=== PATIENT | male | born 1970 | race Caucasian/White ===

== ENCOUNTER → 2017-06-01 | Outpatient (CLI) | payer OTHER ==
[~2017-06-01] MED LIST: OMEP40CA6 PO
== END ==
LOC: RAD 08:38
PROVIDERS: ATTEND Nurse Practitioner Primary Care
DX: K80.20 Calculus of gallbladder without cholecystitis without obstruction (principal)
CPT/HCPCS: 76700

== ENCOUNTER 2017-06-02 11:05 | Inpatient (IN) | payer OTHER ==
[~2017-06-02] VITALS: Ht 182.9 cm; Wt 93.7 kg
[2017-06-02] MEDS ORDERED: CEFAZOLIN PMX 2GM/50ML 50 ML IV SCH (12:00)
[2017-06-02] MEDS ORDERED: ONDANSETRON 2MG/ML, 2ML IVPush PRN (12:00)
[2017-06-02] MEDS: PLEASE ENTER HEIGHT AND WEIGHT MC SCH ×2 (12:30→20:30)
[2017-06-02] MEDS ORDERED: PLEASE ENTER ALLERGIES MC SCH (12:30)
[2017-06-02] MEDS ORDERED: CEFTRIAXONE 2 GM in DEXTROSE 5% 100 ML IVPB SCH (12:30)
[2017-06-02 12:36] LABS: BASOPHILS # (AUTO) 0.02 x10^3/uL (0-0.1); BASOPHILS % (AUTO) 0 % (0-1); EOSINOPHILS # (AUTO) 0.18 x10^3/uL (0-0.4); EOSINOPHILS % (AUTO) 2 % (1-7); LYMPHOCYTES # (AUTO) 2.42 x10^3/uL (1-3.4); LYMPHOCYTES % (AUTO) 29 % (22-44); MD NO; MEAN CORPUSCULAR HEMOGLOBIN 23.7 pg (27.5-34.5); MEAN CORPUSCULAR HGB CONC 32.5 g/dL (33.2-36.2); MEAN CORPUSCULAR VOLUME 73.1 fL (81-97); MEAN PLATELET VOLUME 8.9 fL (7.4-10.4); MONOCYTES # (AUTO) 0.75 x10^3/uL (0.2-0.8); MONOCYTES % (AUTO) 9 % (2-9); NEUTROPHILS % (AUTO) 60 % (42-75); PLATELET COUNT 227 x10^3/uL (130-400); RED BLOOD COUNT 5.68 x10^6/uL (4.38-5.82); RED CELL DISTRIBUTION WIDTH 15.9 % (9.4-14.8)
[2017-06-02 12:40] LABS: ANION GAP 9 mmol/L (5-15); CHLORIDE 106 mmol/L (98-107); CREATININE 0.94 mg/dL (0.7-1.3)
[2017-06-02] MEDS: morphine SULFATE 10 MG/ML, 1ML IVPush PRN ×3 (12:50→20:20)
[2017-06-02] MEDS: SODIUM CHLORIDE 0.9% 1,000 ML IV SCH ×2 (12:52→20:10)
[2017-06-02] MEDS: CEFAZOLIN 2,000 MG in DEXTROSE 5% 100 ML IVPB SCH (14:01)
[2017-06-02 14:16] VITALS: BP 131/83
[2017-06-02 14:19] VITALS: BP 131/83
[2017-06-02] MEDS ORDERED: BUPIVACAINE/PF 0.5% ONE (14:37)
[2017-06-02] MEDS ORDERED: EPINEPHRINE 1 MG/ML, 1ML ONE (14:37)
[2017-06-02] MEDS ORDERED: LIDOCAINE GEL 2%, 5ML ONE (16:29)
[2017-06-02] MEDS ORDERED: DEXAMETHASONE 4 MG/ML, 5ML ONE (16:33)
[2017-06-02] MEDS ORDERED: ROCURONIUM 10 MG/ML,10ML ONE (16:33)
[2017-06-02] MEDS ORDERED: KETOROLAC 30 MG/1 ML ONE (16:33)
[2017-06-02] MEDS ORDERED: FENTANYL PF 100 MCG/2ML ONE ×2 (16:34→17:41)
[2017-06-02] MEDS ORDERED: MIDAZOLAM 1 MG/ML, 2ML ONE (16:34)
[2017-06-02] MEDS ORDERED: NEOSTIGMINE 1 MG/ML, 10ML ONE (16:47)
[2017-06-02] MEDS ORDERED: CEFOTETAN PMX 2GM/50ML 50 ML ONE (16:47)
[2017-06-02] MEDS ORDERED: PROPOFOL 10 MG/ML, 20ML ONE (16:47)
[2017-06-02] MEDS ORDERED: SUCCINYLCHOLINE 20 MG/ML, 10ML ONE (16:47)
[2017-06-02] MEDS ORDERED: CEFAZOLIN 1,000 MG ONE (16:47)
[2017-06-02] MEDS ORDERED: GLYCOPYRROLATE 0.2MG/1ML, 5ML ONE (16:47)
[2017-06-02] MEDS ORDERED: ONDANSETRON 2MG/ML, 2ML ONE (16:47)
[2017-06-02] MEDS ORDERED: DEXAMETHASONE 4 MG/ML, 1ML ONE (16:47)
[2017-06-02] MEDS ORDERED: ONDANSETRON ODT 8 MG ONE ×2 (16:48)
[2017-06-02] MEDS: FENTANYL PF 100 MCG/2ML IV PRN ×3 (17:45→17:55)
[2017-06-02] MEDS ORDERED: ACETAMINOPHEN 650 MG/20.3 ML UDC ONE (17:58)
[2017-06-02] MEDS ORDERED: OXYcodone 5 MG/5 ML ORAL.SOL UDC ONE (17:58)
[2017-06-02] MEDS ORDERED: OXYcodone 5 MG/5 ML ORAL.SOL UDC PO PRN (18:00)
[2017-06-02] MEDS ORDERED: PROMETHAZINE 25 MG/ML, 1ML IV PRN (18:00)
[2017-06-02] MEDS ORDERED: morphine SULFATE 10 MG/ML, 1ML IV PRN (18:00)
[2017-06-02] MEDS ORDERED: HYDROmorphone 1 MG/ML, 1ML IV PRN (18:00)
[2017-06-02] MEDS ORDERED: MEPERIDINE/PF 25MG/0.5ML IVPush PRN (18:00)
[2017-06-02] MEDS ORDERED: METOCLOPRAMIDE 5 MG/ML, 2ML IV PRN (18:00)
[2017-06-02] MEDS ORDERED: HYDROcodone/APAP 7.5-325MG/15ML UDC PO PRN (18:00)
[2017-06-02] MEDS ORDERED: ACETAMINOPHEN 325 MG TABLET PO PRN (18:30)
[2017-06-02] MEDS ORDERED: OMEP40CA6 PO (18:45)
[2017-06-02 18:47] VITALS: BP 116/58
[2017-06-02] MEDS ORDERED: MORPHINE SULFATE 4 MG/ML, 1ML ONE (20:16)
[2017-06-03] MEDS ORDERED: MORPHINE SULFATE 4 MG/ML, 1ML ONE ×2 (00:39→05:31)
[2017-06-03] MEDS: morphine SULFATE 10 MG/ML, 1ML IVPush PRN ×3 (00:41→10:03)
[2017-06-03] MEDS: CEFAZOLIN 2,000 MG in DEXTROSE 5% 100 ML IVPB SCH ×2 (00:41→12:30)
[2017-06-03 00:45] VITALS: BP 129/63
[2017-06-03] MEDS: PLEASE ENTER HEIGHT AND WEIGHT MC SCH (04:30)
[2017-06-03] MEDS: SODIUM CHLORIDE 0.9% 1,000 ML IV SCH ×2 (05:36→10:07)
[2017-06-03 10:44] VITALS: BP 128/78
== END 2017-06-03 14:17 | disposition home or self-care (01) | DRG 419 ==
LOC: 3NE 11:05 → EDSTATUS 16:30
PROVIDERS: ADMIT Surgery; ATTEND Surgery
PROC: 0FT44ZZ Resection of Gallbladder, Percutaneous Endoscopic Approach (ICD-10-PCS; principal; 2017-06-03)
DX: K81.0 Acute cholecystitis (principal); K21.9 Gastro-esophageal reflux disease without esophagitis
CPT/HCPCS: 36415; 80048; 85025; 88304; J0171; J0690; J1100; J1885; J2250; J2405; J2704; J2710; J3010; J3490; Q0162; J0330; J2270; J7030; S0074